=== PATIENT | female | born 2000 | race Caucasian/White ===

== ENCOUNTER 2021-08-03 13:11 | Inpatient (IN) | payer OTHER ==
[~2021-08-03] VITALS: Ht 162.6 cm; Wt 49.4 kg
[2021-08-03] MEDS ORDERED: PRENATAL CAPLE1 EAC1 PO (17:01)
[2021-08-10] MEDS ORDERED: MACROBID 100 M100 MG PO (13:24)
== END 2021-08-10 14:23 | disposition home or self-care (01) | DRG 832 ==
LOC: LDR 13:11 → OB/GYN 08-05 10:52
PROVIDERS: ADMIT Obstetrics & Gynecology; ATTEND Obstetrics & Gynecology
PROC: 4A1HXFZ Monitoring of Products of Conception, Cardiac Rhythm, External Approach (ICD-10-PCS; principal; 2021-08-03)
DX: O23.02 Infections of kidney in pregnancy, second trimester (principal); O23.42 Unspecified infection of urinary tract in pregnancy, second trimester; N39.0 Urinary tract infection, site not specified; O99.112 Other diseases of the blood and blood-forming organs and certain disorders involving the immune mechanism complicating pregnancy, second trimester; D69.6 Thrombocytopenia, unspecified; O99.012 Anemia complicating pregnancy, second trimester; D64.9 Anemia, unspecified; B96.20 Unspecified Escherichia coli [E. coli] as the cause of diseases classified elsewhere; Z3A.21 21 weeks gestation of pregnancy

== ENCOUNTER 2021-08-18 09:19 | Outpatient (CLI) | payer OTHER ==
[~2021-08-18 09:19] MED LIST: MACROBID 100 M100 MG PO; PRENATAL CAPLE1 EAC1 PO
== END 2021-08-18 10:10 | disposition home or self-care (01) ==
LOC: PRENATAL 09:19
PROVIDERS: ATTEND Obstetrics & Gynecology Maternal & Fetal Medicine
DX: O35.0XX1 Maternal care for (suspected) central nervous system malformation in fetus, fetus 1 (principal); O35.3XX1 Maternal care for (suspected) damage to fetus from viral disease in mother, fetus 1; O98.512 Other viral diseases complicating pregnancy, second trimester; Z36.89 Encounter for other specified antenatal screening; Z3A.23 23 weeks gestation of pregnancy

== ENCOUNTER 2021-11-30 02:46 | Inpatient (IN) | payer OTHER ==
[~2021-11-30] VITALS: Ht 162.6 cm; Wt 55.8 kg
[2021-11-30] MEDS ORDERED: MACRODANTIN100 MG (15:01)
[2021-11-30] MEDS ORDERED: NITROFURANTOIN100 M1 (15:01)
[2021-12-02] MEDS ORDERED: NAPR500T14 PO (09:21)
== END 2021-12-02 12:59 | disposition home or self-care (01) | DRG 768 ==
LOC: OBS/DEL 02:46 → LDR 08:05 → OB/GYN 21:29
PROVIDERS: ADMIT Obstetrics & Gynecology; ATTEND Obstetrics & Gynecology
PROC: 0DQR0ZZ Repair Anal Sphincter, Open Approach (ICD-10-PCS; principal; 2021-11-30)
PROC: 10E0XZZ Delivery of Products of Conception, External Approach (ICD-10-PCS; 2021-11-30)
PROC: 4A1HXCZ Monitoring of Products of Conception, Cardiac Rate, External Approach (ICD-10-PCS; 2021-11-30)
DX: O70.21 Third degree perineal laceration during delivery, IIIa (principal); Z37.0 Single live birth; O66.0 Obstructed labor due to shoulder dystocia; Z20.822 Contact with and (suspected) exposure to COVID-19; Z3A.38 38 weeks gestation of pregnancy